=== PATIENT | male | born 1955 | race Caucasian/White ===

== ENCOUNTER → 2023-09-29 | Outpatient (CLI) | payer MEDICARE, OTHER | LOC: M RAD 08:37 | PROVIDERS: ATTEND Nurse Practitioner Family | DX: K80.20 Calculus of gallbladder without cholecystitis without obstruction (principal); K76.0 Fatty (change of) liver, not elsewhere classified ==

== ENCOUNTER 2024-01-31 12:47 | Day surgery (SDC) | payer MEDICARE, OTHER ==
[~2024-01-31] VITALS: Ht 167.6 cm; Wt 92.4 kg
[~2024-01-31 12:47] MED LIST: ASPI81TA26 PO; ATOR40TA75 PO; BUSP15TA47 PO; CYCL-707 PO; EPIP0.3I2 IM; LEXA1TAB2 PO; LOSA25TA13 PO; METO1TAB32 PO; NITR0.4S14 SL; OMEP40CA5 PO; PRIL20TA2 PO
[2024-01-31] MEDS: NS 1,000 ML IV ONE (13:00)
[2024-01-31] MEDS ORDERED: propofoL 200 MG/20 ML VIAL As Ordered ONE (13:04)
[2024-01-31 14:20] VITALS: BP 125/74; TEMP 97.2; O2SAT 97
== END 2024-01-31 14:20 | disposition home or self-care (01) ==
LOC: M OPP 12:47
PROVIDERS: ATTEND Internal Medicine Gastroenterology
DX: R13.10 Dysphagia, unspecified (principal); K21.00 Gastro-esophageal reflux disease with esophagitis, without bleeding; K44.9 Diaphragmatic hernia without obstruction or gangrene; Z87.19 Personal history of other diseases of the digestive system; I25.10 Atherosclerotic heart disease of native coronary artery without angina pectoris; I10 Essential (primary) hypertension; J44.9 Chronic obstructive pulmonary disease, unspecified; I25.2 Old myocardial infarction; E78.00 Pure hypercholesterolemia, unspecified; Z79.899 Other long term (current) drug therapy; Z79.82 Long term (current) use of aspirin; F17.210 Nicotine dependence, cigarettes, uncomplicated; Z95.5 Presence of coronary angioplasty implant and graft; Z88.6 Allergy status to analgesic agent; Z91.030 Bee allergy status

== ENCOUNTER 2024-02-03 09:40 | Day surgery (SDC) | payer MEDICARE, OTHER ==
[~2024-02-03] VITALS: Ht 165.1 cm; Wt 94.3 kg
[2024-02-03] MEDS ORDERED: MIDAZOLAM INJ 2MG/2ML VIAL As Ordered ONE (10:30)
[2024-02-03] MEDS ORDERED: fentaNYL 100 MCG/2 ML INJECTION As Ordered ONE (10:31)
[2024-02-03] MEDS ORDERED: ROCURONIUM BROMIDE 50MG/5ML VIAL As Ordered ONE (10:32)
[2024-02-03] MEDS ORDERED: propofoL 200 MG/20 ML VIAL As Ordered ONE (10:34)
[2024-02-03] MEDS ORDERED: LIDOCAINE 2% 100MG/5ML SDV (FOR ANES.) As Ordered ONE (10:34)
[2024-02-03] MEDS ORDERED: LR 1,000 ML IV SCH ×2 (10:35→13:15)
[2024-02-03] MEDS ORDERED: ONDANSETRON 4MG 2ML VIAL As Ordered ONE (10:40)
[2024-02-03] MEDS ORDERED: dexmedeTOMIDine (4MCG/ML)200MCG/50ML BTL (PRECEDEX) As Ordered ONE (10:41)
[2024-02-03] MEDS ORDERED: DEXTROSE 50% 50ML SYRINGE IV PRN ×2 (10:50→13:15)
[2024-02-03] MEDS: METOPROLOL SUCC *XL* 25MG TAB (TopROL *XL*) PO ONE (10:50)
[2024-02-03] MEDS ORDERED: GLUCOSE 4 GM CHEW PO PRN ×2 (10:50→13:15)
[2024-02-03] MEDS ORDERED: GLUCAGON INJ 1MG VIAL SC PRN ×2 (10:50→13:15)
[2024-02-03] MEDS: INSULIN LISPRO (NovoLOG) PER UNIT SC PRN ×2 (10:53→13:39)
[2024-02-03] MEDS: INDOCYANINE GREEN 25MG VIAL (IC-GREEN) IV ONE (11:27)
[2024-02-03] MEDS: ceFAZolin SOD 2 GM in IV 1 EA IV ONE (12:00)
[2024-02-03] MEDS: HEPARIN SOD (PORCINE) 5000UNITS/ML 1ML VIAL/SYRINGE SQ ONE (12:09)
[2024-02-03] MEDS ORDERED: SUGAMMADEX SODIUM 500 MG/5 ML VIAL (BRIDION) As Ordered ONE (12:17)
[2024-02-03] MEDS ORDERED: GLYCOPYRROLATE INJ 0.2 MG/ML 2 ML VIAL As Ordered ONE (12:19)
[2024-02-03] MEDS ORDERED: HYDROmorphone HCL 2MG/ML 1ML VIAL As Ordered ONE (12:24)
[2024-02-03] MEDS ORDERED: LABETALOL 100MG/20ML VIAL As Ordered ONE (12:35)
[2024-02-03] MEDS: INDOCYANINE GREEN 25MG VIAL (IC-GREEN) As Ordered ONE (12:54)
[2024-02-03] MEDS ORDERED: ONDANSETRON 4MG 2ML VIAL IV PRN (13:15)
[2024-02-03] MEDS ORDERED: fentaNYL 100 MCG/2 ML INJECTION IV PRN (13:15)
[2024-02-03] MEDS: LABETALOL 100MG/20ML VIAL IV PRN (13:19)
[2024-02-03 13:32] VITALS: BP 166/103
[2024-02-03] MEDS: HYDROMORPHONE HCL 0.5 MG/ 0.5 ML SYRINGE IV PRN (13:38)
[2024-02-03] MEDS: oxyCODONE 5MG TAB PO PRN (13:59)
[2024-02-03 14:43] VITALS: BP 158/84; TEMP 97.7; O2SAT 98
== END 2024-02-03 15:02 | disposition home or self-care (01) ==
LOC: M SDC 09:40
PROVIDERS: ATTEND Surgery
DX: I25.10 Atherosclerotic heart disease of native coronary artery without angina pectoris (principal); I25.2 Old myocardial infarction; Z95.5 Presence of coronary angioplasty implant and graft; Z91.030 Bee allergy status; Z88.6 Allergy status to analgesic agent; Z88.5 Allergy status to narcotic agent; Z79.899 Other long term (current) drug therapy; F17.210 Nicotine dependence, cigarettes, uncomplicated
CPT/HCPCS: 47563; 88304; J0665; J0690; J1100; J1171; J1596; J1815; J1920; J2250; J2405; J3010; Q9968; S2900